=== PATIENT | male | born 1995 | race African-American/Black ===

== ENCOUNTER 2023-09-21 15:09 | Emergency (ER) | payer SELFPAY ==
[~2023-09-21] VITALS: Ht 177.8 cm; Wt 81.6 kg
[2023-09-21 15:33] VITALS: O2SAT 100
[2023-09-21 16:52] VITALS: BP 124/74; PULSE 87; RESP 16; TEMP 98.4
[2023-09-21] MEDS ORDERED: DOXY100T28 PO (17:00)
[2023-09-21] MEDS: CEFTRIAXONE SODIUM 500MG VIAL IM ONE (17:38)
[2023-09-21 18:46] LABS: CLARITY URINE CLOUDY (CLEAR); COLOR URINE YELLOW (YELLOW); GLUCOSE URINE NEGATIVE (NEGATIVE); KETONES URINE 2+ (NEGATIVE); LEUKOCYTE ESTERASE URINE 2+ (NEGATIVE); NITRITE URINE NEGATIVE (NEGATIVE); OCCULT BLOOD URINE 1+ (NEGATIVE); PH URINE 5.5 (4.5-8.0); PROTEIN URINE 1+ (NEGATIVE); SPECIFIC GRAVITY URINE 1.025 (1.005-1.030); UROBILINOGEN URINE 0.2 E.U./dL (0.2-1.0)
[2023-09-21 19:15] LABS: WBC URINE TNTC /hpf (0-2)
[2023-09-21 19:16] LABS: BACTERIA URINE 2+; RBC URINE 0-2 /hpf (0-2); SQUAMOUS EPITHELIAL CELL URINE 1+ /lpf (RARE/1+)
[2023-09-24 19:10] LABS: CHLAMYDIA TRACHOMATIS NAA Negative (Negative); NEISSERIA GONORRHOEAE NAA Positive (Negative)
== END 2023-09-21 18:53 | disposition home or self-care (01) ==
LOC: ER 15:09
DX: R30.0 Dysuria (principal); A64 Unspecified sexually transmitted disease; R36.9 Urethral discharge, unspecified
CPT/HCPCS: 99283; 87491; 87591; 81003; 87086; 87186; 87077; 96372; J0696